=== PATIENT | female | born 1950 | race Caucasian/White ===

== ENCOUNTER 2018-01-05 12:24 | Day surgery (SDC) | payer MEDICARE, OTHER, SELFPAY ==
[2018-01-05 12:59] VITALS: BP 187/98; PULSE 82; RESP 16; TEMP 36.6; O2SAT 93
--- NOTE | 2018-01-05 13:08 | PM.PREOP ---
Pre-operative Note Interval Note Pre-op Check: History & Physical Reviewed by Physician
--- NOTE | 2018-01-05 13:09 | P.OP_ITS ---
Operative Date/Time/Diagnoses - Pre-op diagnosis: Cataract Left eye Post-op diagnosis: same Procedure & Clinicians Surgeon: Singh Casas Anesthesia Type: MAC +/- and Sedation Operative Notes Procedure in detail: Patient brought to the operating suite. Tetracaine drops placed in the left eye. Patient was prepped and draped in sterile manner. Wire lid speculum was placed in the eye. Betadine drops were placed on the eye. This was irrigated. Lidocaine jelly was placed on the eye. A paracentesis port was created with a side-port blade. 0.1 mL 1% preservative free lidocaine was injected into the anterior chamber. The anterior chamber was deepened with viscoelastic. 2.6 mm keratome was used to create a temporal clear corneal incision. Cystotome and Utrata forceps were used to create continuous tear capsulorrhexis. Balanced salt solution was used to hydro dissect the nucleus. The phacoemulsification handpiece was inserted and the nucleus was removed using the stop and chop technique. The irrigation aspiration handpiece was inserted and the remaining cortex was removed. Anterior chamber was deepened with viscoelastic. An Goldman [id number] intraocular lens with a power of 23.0 was injected into the capsular bag. Irrigation aspiration handpiece was inserted and the remaining viscoelastic was removed. Incision was hydrated with balanced salt solution and found to be leak free with pressure with Weck- Megan sponges. 0.1 mL Vigamox injected anterior chamber. 0.3 mL Kenalog 10 mg was injected subconjunctivally. Lid speculum was removed. The patient left the operating room in excellent condition. Complications: none Condition: stable Disposition: same day surgery
[2018-01-05] MEDS: PROPARACAINE 0.5% OPHTH SOL 2 DROPS EYE-OP (13:10)
[2018-01-05] MEDS: CATARACT EYE COMPOUND (10 DROPS/SYRINGE) 3 DROPS EYE-OP (13:13)
[2018-01-05] MEDS: CHONDROIDTIN/SOD HYALURONATE 1.05 ML SYRINGE INTRAOCULA (13:28)
[2018-01-05] MEDS: MOXIFLOXACIN OPHTH DROPS 3 ML BOTTLE 2 DROPS INJ (13:28)
[2018-01-05] MEDS: TRIAMCINOLONE 50 MG/5 ML VIAL INJ (13:29)
[2018-01-05] MEDS: BALANCED SALT IRRIG SOLN NO.2 500 ML, EPINEPHrine 1 MG IRR (13:30)
[2018-01-05] MEDS: LIDOCAINE JELLY 2% 5 ML 1 APPLIC TOP (13:31)
[2018-01-05] MEDS: TETRACAINE 0.5% OPHTH DROPS 15 ML 2 DROPS EYE-LEFT (13:32)
[2018-01-05] MEDS: PHENYLEPHRINE/LIDOCAINE 3ML VIAL (OR) EYE-OP (13:33)
[2018-01-05 13:44] VITALS: BP 168/97; PULSE 79; RESP 18; TEMP 36.1; O2SAT 95
[2018-01-05 14:00] VITALS: BP 129/68; PULSE 73; RESP 14; TEMP 36.1; O2SAT 95
== END 2018-01-05 14:16 | disposition home or self-care (01) ==
PROVIDERS: Visit Provider Ophthalmology
DX: H25.12 Age-related nuclear cataract, left eye (principal); I10 Essential (primary) hypertension
CPT/HCPCS: J0171; J2250; J3010; J3301

== ENCOUNTER 2018-02-22 15:01 | Emergency (ER) | payer MEDICARE, OTHER, SELFPAY ==
[2018-02-22 15:18] VITALS: BP 191/81; PULSE 85; RESP 20; TEMP 37.1; O2SAT 96; BMI 44.6
--- NOTE | 2018-02-22 15:24 | ED.GENADULT ---
HPI - General Adult General Chief complaint: Dizziness Stated complaint: dizziness and elevated BP Time Seen by Provider: 02/22/18 15:17 Source: patient Mode of arrival: ambulatory Limitations: no limitations History of Present Illness HPI narrative: 67-year-old female with a history of high blood pressure on lisinopril here for evaluation of headache and high blood pressure. Patient states that on Thursday she had a headache. She states that she has had a headache in the past but nothing this bad except for many years ago. It was a gradual onset. She states that she drank some Coke because this sometimes helps. However this time it did not. She states that yesterday the headache did improve somewhat. States that today the headache is a little worse than yesterday but not as bad as Thursday. Went to physical therapy today. States she was on the treadmill for 8 min and afterwards became lightheaded and had to have the physical speech therapy director help her off the treadmill. They took her blood pressure and the systolic was greater than 200. No medications were administered. She is brought to the emergency department for evaluation Related Data Home Medications Medication Instructions Recorded Confirmed acetaminophen [Tylenol Arthritis 1 tab PO PRN PRN 02/22/18 02/22/18 Pain] acetaminophen [Tylenol Extra 1 tab PO PRN PRN 02/22/18 02/22/18 Strength] aspirin 81 mg PO DAILY 02/22/18 02/22/18 lisinopril 30 mg PO DAILY 02/22/18 02/22/18 ranitidine HCl 1 tab PO BID 02/22/18 02/22/18 Allergies Allergy/AdvReac Type Severity Reaction Status Date / Time Sulfa (Sulfonamide Allergy Intermediate Verified 02/22/18 15:41 Antibiotics) adhesive tape AdvReac Intermediate Verified 02/22/18 15:41 adhesive AdvReac Verified 02/22/18 15:41 Review of Systems Constitutional Denies fever(s), Reports headache(s), Denies lethargy and Denies malaise ENT Ears, Nose, Mouth, and Throat: Denies vertigo, Denies dizziness and Reports headache(s) Cardiovascular Denies chest pain, Denies chest pain with activity, Denies syncope, Denies palpitations and Denies dyspnea Respiratory Denies cough and Denies dyspnea Gastrointestinal Gastrointestinal: Denies abdominal pain, Denies dyspepsia, Denies diarrhea, Denies nausea and Denies vomiting Genitourinary Denies dysuria Musculoskeletal Denies myalgias and Reports arthralgias (Chronic right knee pain) Integumentary/Breasts Reports lesions and Reports rash Neurologic Denies abnormal speech, Denies confusion, Denies vertigo, Denies dizziness, Denies syncope, Reports headache(s), Denies focal weakness, Denies seizure-like activity and Denies sensory deficit Psychiatric Denies confusion Endocrine Denies palpitations Hematologic/Lymphatic Denies easy bleeding and Denies easy bruising [facility] Medical History Hypertension (Acute) Social History household members: significant other Smoking Status: Former smoker Comment: Reviewed patient's past medical surgical social and family history Exam Initial Vital Signs Initial Vital Signs: Vital Signs Temperature 98.7 F 02/22/18 15:18 Pulse Rate 85 02/22/18 15:18 Respiratory Rate 20 02/22/18 15:18 Blood Pressure 191/81 H 02/22/18 15:18 Pulse Oximetry 96 02/22/18 15:18 Const General: cooperative, healthy appearing, comfortable, well developed, well groomed and No acute distress Orientation: alert, awake and oriented x3 HENMT Head: normal to inspection, normocephalic and atraumatic Eyes Pupils: PERRL EOM: EOM intact bilaterally Resp Effort & Inspection: normal respiratory effort Auscultation: clear to auscultation bilaterally Cardio Rate: regular rate Rhythm: regular rhythm Heart Sounds: no murmurs Pulses: radial pulses present GI Inspection: non-distended Palpation: soft, No firm and No tender Skin Lesions: no lesions Rashes: no rashes Neuro General: alert, awake and oriented x3 Cranial Nerves: CN's II-XI intact bilaterally Cognition: normal cognition Speech: speech normal Motor: muscle tone normal throughout Sensory Exam: no sensory deficits noted Extrem General: normal to inspection, capillary refill normal and normal exam except as noted Psych Appearance: grossly normal and well kempt Course Orders Ordered: ED Orders 02/22/18 15:24 EKG-12 Lead Stat 02/22/18 15:35 Basic Metabolic Panel Stat Complete Blood Count AUTO DIFF Stat 02/22/18 15:38 CT head/brain wo con Stat Vital Signs - 8 hr 02/22/18 15:18 02/22/18 15:40 02/22/18 16:42 Temperature 98.7 F Pulse Rate 85 70 75 Respiratory Rate 20 18 22 Blood Pressure 191/81 H Blood Pressure [Left Arm] 191/97 H 172/83 H Pulse Oximetry 96 94 97 Medical Decision Making MDM Narrative Medical decision making narrative: Patient with a normal neurologic exam here in the emergency department. Head CT was negative. Patient declined need for headache medicines here in the emergency department. Blood pressure decreasing while here. Will hold on acutely decreasing it here in the emergency department. Had a long discussion with the patient regarding her blood pressure in her symptoms. Will hold on further testing for now. Instructed her to continue to take her blood pressure at home. Informed her to contact her primary care doctor for follow-up. She was given return precautions. She expressed understanding and agreement with plan. Lab Data Result diagrams: 02/22/18 15:35 02/22/18 15:35 Lab Results 02/22/18 02/22/18 Range/Units 15:35 15:35 WBC 6.9 (4.5-11.0) X10^3/uL RBC 4.38 (4.0-5.2) X10^6/uL Hgb 12.4 (12.0-16.0) g/dL Hct 37.7 (36-46) % MCV 85.9 (80-100) fL MCH 28.2 (26-34) PG MCHC 32.9 (30-36) % RDW 14.5 (11.6-14.8) % Plt Count 268 (150-400) X10^3/uL Neut % (Auto) 69.5 (50-75) % Lymph % (Auto) 20.5 L (25-40) % [place] % (Auto) 7.4 (3-14) % Eos % (Auto) 2.1 (2-4) % Baso % (Auto) 0.5 (0-2) % Neut # (Auto) 4800 (8207-1506) /uL Sodium 143 (137-145) mmol/L Potassium 3.7 (3.4-5.1) mmol/L Chloride 109 H (98-107) mmol/L Carbon Dioxide 26 (22-32) mmol/L BUN 16 (7-17) mg/dL Creatinine 0.80 (0.52-1.04) mg/dL Estimated GFR > 60.0 (>60) mL/min BUN/Creatinine Ratio 20.0 (6-22) Glucose 96 (80-110) mg/dL Calcium 9.0 (8.4-10.2) mg/dL Imaging Data CT scan - head: Radiologist's impression: PROCEDURE: CT HEAD/BRAIN WO CON INDICATIONS: Headache with hypertension TECHNIQUE: Noncontrast 4.5 mm thick angled axial sections acquired from the foramen magnum to the vertex, with coronal and sagittal reformats. For radiation dose reduction, the following was used: automated exposure control, adjustment of mA and/or kV according to patient size. COMPARISON: None. FINDINGS: Image quality: Excellent. CSF spaces: Basal cisterns are patent. No extra-axial fluid collections. The ventricles are symmetric in size and shape. Brain: No intracranial bleeds or masses. There is cerebral volume loss for age, with resultant ventricular and sulcal prominence. There are periventricular and deep white matter chronic small vessel ischemic changes. There is intracranial internal carotid artery atherosclerosis. Skull and face: Calvarium and visualized facial bones appear intact, without suspicious lesions. Sinuses: Visualized sinuses and mastoids are clear. IMPRESSION: Normal intracranial study for age. Specifically, no findings of acute intracranial hemorrhage are seen. Note is made of age-appropriate brain parenchymal volume loss and chronic small vessel ischemic changes. Dictated by: Luis Canas M.D. on 02/22/2018 at 15:01 Approved by: Luis Canas M.D. on 02/22/2018 at 15:03 ECG Data Prior ECG tracings: not available for review Interpretation: Sinus rhythm Ventricular rate is 69 Normal axis Normal QRS Normal QTC No ST T wave changes Discharge Plan Departure Patient Disposition: Home, Self-Care Clinical Impression: Headache, Hypertension Instructions: High Blood Pressure (Hypertension) (Alternative Therapy), Essential Hypertension, DI for Headache Activity Restrictions/Additional Instructions: Continue to take your medication as directed. Call your primary care doctor for a follow-up. Return to the emergency department for any new or worsening symptoms Prescriptions: No Action ranitidine HCl 150 mg tablet 1 tab PO BID RF: 0 lisinopril 30 mg tablet 30 mg PO DAILY RF: 0 aspirin 81 mg Tablet,Delayed Release (Dr/Ec) 81 mg PO DAILY RF: 0 acetaminophen [Tylenol Extra Strength] 500 mg Tablet 1 tab PO PRN PRN (Reason: Pain, Mild) RF: 0 acetaminophen [Tylenol Arthritis Pain] 650 mg Tablet Extended Release 1 tab PO PRN PRN (Reason: Pain, Mild) RF: 0
--- NOTE | 2018-02-22 15:38 | DI.CT.S_ITS ---
PROCEDURE: CT HEAD/BRAIN WO CON INDICATIONS: Headache with hypertension TECHNIQUE: Noncontrast 4.5 mm thick angled axial sections acquired from the foramen magnum to the vertex, with coronal and sagittal reformats. For radiation dose reduction, the following was used: automated exposure control, adjustment of mA and/or kV according to patient size. COMPARISON: None. FINDINGS: Image quality: Excellent. CSF spaces: Basal cisterns are patent. No extra-axial fluid collections. The ventricles are symmetric in size and shape. Brain: No intracranial bleeds or masses. There is cerebral volume loss for age, with resultant ventricular and sulcal prominence. There are periventricular and deep white matter chronic small vessel ischemic changes. There is intracranial internal carotid artery atherosclerosis. Skull and face: Calvarium and visualized facial bones appear intact, without suspicious lesions. Sinuses: Visualized sinuses and mastoids are clear. IMPRESSION: Normal intracranial study for age. Specifically, no findings of acute intracranial hemorrhage are seen. Note is made of age-appropriate brain parenchymal volume loss and chronic small vessel ischemic changes. Dictated by: Luis Canas M.D. on 02/22/2018 at 15:01 Approved by: Luis Canas M.D. on 02/22/2018 at 15:03
[2018-02-22 15:40] VITALS: BP 191/97; PULSE 70; RESP 18; O2SAT 94
[2018-02-22 15:57] LABS: Add Manual Diff / Slide Review NO; Basophils Percent Auto 0.5 % (0-2); Eosinophils Percent Auto 2.1 % (2-4); Hematocrit 37.7 % (36-46); Hemoglobin 12.4 g/dL (12.0-16.0); Lymphocytes Percent Auto 20.5 % (25-40); Mean Corpuscular HGB Conc 32.9 % (30-36); Mean Corpuscular Hemoglobin 28.2 PG (26-34); Mean Corpuscular Volume 85.9 fL (80-100); Monocytes Percent Auto 7.4 % (3-14); Neutrophils Absolute Auto 4800 /uL (3000-5900); Neutrophils Percent Auto 69.5 % (50-75); Platelet Count 268 X10^3/uL (150-400); Red Blood Cell Count 4.38 X10^6/uL (4.0-5.2); Red Cell Distribution Width 14.5 % (11.6-14.8); White Blood Cell Count 6.9 X10^3/uL (4.5-11.0)
[2018-02-22 16:03] LABS: Blood Urea Nitrogen 16 mg/dL (7-17); Carbon Dioxide 26 mmol/L (22-32); Chloride 109 mmol/L (98-107); Estimated Glomerular Filt Rate > 60.0 mL/min (>60); Glucose 96 mg/dL (80-110); HEMOLYSIS < 15 (0-50); Potassium 3.7 mmol/L (3.4-5.1); Sodium 143 mmol/L (137-145)
[2018-02-22 16:42] VITALS: BP 172/83; PULSE 75; RESP 22; O2SAT 97
== END 2018-02-22 17:08 | disposition home or self-care (01) ==
PROVIDERS: Emergency Provider Emergency Medicine
DX: R51 Headache (principal); I10 Essential (primary) hypertension
CPT/HCPCS: 36591; 70450; 80048; 85025; 93005; 93010; 99282; 99285

== ENCOUNTER 2019-05-03 15:24 | Emergency (ER) | payer OTHER, SELFPAY ==
[2019-05-03 15:40] VITALS: BP 209/103; PULSE 99; RESP 19; TEMP 37; O2SAT 96; BMI 44.4
--- NOTE | 2019-05-03 15:57 | ED_ITS ---
HPI - Abdominal Pain General Chief Complaint: Abdominal Pain Stated Complaint: pain from back to abdomen Time Seen by Provider: 05/03/19 15:35 Source: patient Mode of arrival: Ambulatory Limitations: no limitations History of Present Illness HPI narrative: 68 female nonsmoker with history of hypertension presents at the request of the walk-in clinic for evaluation of severe upper and left-sided back pain with radiation to her abdomen. She states worse when she moves and improves with rest. She seems to have associated nausea and might get worse when she eats. She denies any history of the same. She denies any injury. She denies associated symptoms such as dizziness, weakness or lightheadedness. She has no fever or chills. She denies any chest pain, cough or shortness of breath. She denies any diarrhea, dysuria or frequency. Related Data Home Medications Medication Instructions Recorded Confirmed acetaminophen [Tylenol Arthritis 1,300 mg PO BID 02/22/18 05/03/19 Pain] aspirin 81 mg PO DAILY 02/22/18 05/03/19 Vitamin B-12 1 tab PO DAILY 05/03/19 05/03/19 Vitamin D3 1 cap PO DAILY 05/03/19 05/03/19 ibuprofen [Advil] 400 mg PO DAILY PRN 05/03/19 05/03/19 lisinopril 40 mg PO DAILY 05/03/19 05/03/19 Allergies Allergy/AdvReac Type Severity Reaction Status Date / Time Sulfa (Sulfonamide Allergy Intermediate Verified 05/03/19 15:45 Antibiotics) iodine Allergy Verified 05/03/19 15:45 adhesive tape AdvReac Intermediate Verified 05/03/19 15:45 adhesive AdvReac Verified 05/03/19 15:45 Review of Systems Constitutional Constitutional: Denies chills, Denies fatigue, Denies fever(s), Denies frequent falls, Denies lethargy and Denies weakness Eyes Eyes: Denies change in vision, Denies eye discharge, Denies irritation and Denies loss of vision ENT Ears, Nose, Mouth, and Throat: Denies change in voice, Denies dizziness, Denies neck pain, Denies sore throat and Denies throat swelling Cardiovascular Cardiovascular: Denies chest pain, Denies irregular heart rhythm, Denies lightheadedness, Denies palpitations, Denies dyspnea, Denies dyspnea on exertion and Denies orthopnea Respiratory Respiratory: Denies cough, Denies dyspnea, Denies dyspnea on exertion and Denies wheezing Gastrointestinal Gastrointestinal: Reports abdominal pain, Denies change in bowel habits, Denies diarrhea, Reports nausea and Denies vomiting Genitourinary Genitourinary: Denies hematuria, Denies flank pain, Denies urinary incontinence and Denies urinary urgency Musculoskeletal Musculoskeletal: Denies back pain, Denies muscle weakness, Denies neck pain, Denies numbness and Denies tingling Integumentary/Breasts Skin/Breast: Denies pruritus, Denies erythema, Denies rash and Denies wounds Neurologic Neurologic: Denies behavioral changes, Denies confusion, Denies dizziness, Denies frequent falls, Denies loss of vision, Denies numbness, Denies tingling and Denies weakness Psychiatric Psychiatric: Denies anxiety, Denies behavioral changes, Denies confusion, Denies depression, Denies homicidal ideation and Denies suicidal ideation Endocrine Endocrine: Denies fatigue, Denies flushing and Denies palpitations Hematologic/Lymphatic Hematologic/Lymphatic: Denies easy bruising Allergic/Immunologic Allergic/Immunologic: Denies urticaria, Denies throat swelling and Denies wheezing [facility] Medical History Hypertension (Acute) Social History household members: significant other Smoking Status: Former smoker Social History household members: significant other Smoking Status: Former smoker Exam Narrative Exam Narrative: GENERAL: [68] year old patient appears stated age. Well-nourishe d, well-developed patient, in mild distress. HEAD: Atraumatic. Normocephalic. EYES: Pupils equal round and reactive. Extraocular motions intact. No scleral icterus. No injection or drainage. ENT: Nose without bleeding, purulent drainage. Throat without erythema, tonsillar hypertrophy or exudate. Airway patent. NECK: Trachea midline. Non tender CARDIOVASCULAR: Regular rate and rhythm without murmurs, gallops, or rubs. RESPIRATORY: Clear to auscultation. Breath sounds equal bilaterally. No wheezes, rales, or rhonchi. GASTROINTESTINAL: Abdomen soft, mild epigastric pain, nondistended. EXTREMITIES: No edema or joint tenderness. BACK: Left flank tender to palpate NEURO: AOx3. SKIN: No rash or erythema of visible areas Initial Vital Signs Initial Vital Signs: Vital Signs Temperature 98.6 F 05/03/19 15:40 Pulse Rate 99 H 05/03/19 15:40 Respiratory Rate 19 05/03/19 15:40 Blood Pressure 209/103 H 05/03/19 15:40 Pulse Oximetry 96 05/03/19 15:40 Course Orders Ordered: ED Orders 05/03/19 15:40 Urine Microscopic Stat 05/03/19 15:55 US abdomen complete Stat 05/03/19 16:04 EKG-12 Lead Stat 05/03/19 16:43 CT abdomen pelvis w con Stat 05/03/19 17:15 Complete Blood Count AUTO DIFF Stat Comprehensive Metabolic Panel Stat Lipase Stat Partial Thromboplastin Time Stat Prothrombin Time INR Stat 05/03/19 19:55 Creatinine & eGFR Stat Discontinued Medications Diphenhydramine HCl (Benadryl) 25 mg IV NOW ONE Stop: 05/03/19 16:49 Last Admin: 05/03/19 17:59 Dose: 25 mg Documented by: BERTRAND Famotidine (Pepcid) 20 mg in 50 mls @ 200 mls/hr IV NOW ONE Stop: 05/03/19 17:03 Last Infusion: 05/03/19 18:17 Dose: 0 mls/hr Documented by: Admin: 05/03/19 17:59 Dose: 200 mls/hr Documented by: BERTRAND Sodium Chloride (Normal Saline 0.9%) 1,000 mls @ 1,000 mls/hr IV BOLUS ONE Stop: 05/03/19 19:34 Last Infusion: 05/03/19 19:51 Dose: 0 mls/hr Documented by: Admin: 05/03/19 18:53 Dose: 1,000 mls/hr Documented by: CONNIE Methylprednisolone (Solu-Medrol 125 Mg Vial) 125 mg IV NOW ONE Stop: 05/03/19 16:49 Last Admin: 05/03/19 17:59 Dose: 125 mg Documented by: BERTRAND Vital Signs Vital signs: Vital Signs - 8 hr 05/03/19 15:40 05/03/19 18:58 Temperature 98.6 F Pulse Rate 99 H 82 Respiratory Rate 19 20 Blood Pressure 209/103 H Blood Pressure [Right Wrist] 179/93 H Pulse Oximetry 96 96 MDM - Abdominal Pain Lab Data Result diagrams: 05/03/19 17:15 05/03/19 19:55 Labs: Lab Results 05/03/19 05/03/19 05/03/19 Range/Units 15:40 17:15 17:15 WBC 8.7 (4.5-11.0) X10^3/uL RBC 4.42 (4.0-5.2) X10^6/uL Hgb 13.2 (12.0-16.0) g/dL Hct 39.4 (36-46) % MCV 89.2 (80-100) fL MCH 29.9 (26-34) PG MCHC 33.5 (30-36) % RDW 14.0 (11.6-14.8) % Plt Count 225 (150-400) X10^3/uL Neut % (Auto) 76.4 H (50-75) % Lymph % (Auto) 14.7 L (25-40) % [place] % (Auto) 7.6 (3-14) % Eos % (Auto) 0.9 L (2-4) % Baso % (Auto) 0.4 (0-2) % Neut # (Auto) 6700 (3651-5124) /uL Lymph # (Auto) 1300 (7744-6528) /uL [place] # (Auto) 700 (0-900) /uL Eos # (Auto) 100 (0-450) /uL Baso # (Auto) 0 (0-100) /uL PT 11.5 (10.1-12.7) SECONDS INR 1.0 (0.9-1.3) APTT 29 (26.4-36.2) SECONDS Sodium (137-145) mmol/L Potassium (3.4-5.1) mmol/L Chloride (98-107) mmol/L Carbon Dioxide (22-32) mmol/L BUN (7-17) mg/dL Creatinine (0.52-1.04) mg/dL Estimated GFR (>60) mL/min BUN/Creatinine Ratio (6-22) Glucose (80-110) mg/dL Calcium (8.4-10.2) mg/dL Total Bilirubin (0.2-1.3) mg/dL AST (14-36) IU/L ALT (9-52) IU/L Alkaline Phosphatase (38-126) U/L Total Protein (6.3-8.2) g/dL Albumin (3.5-5.0) g/dL Globulin (1.7-4.1) g/dL Albumin/Globulin Ratio (1.0-2.8) Lipase (23-300) U/L Urine RBC 10-30/hpf H (0-5/HPF) Urine WBC 1-5/hpf (0-5/HPF) Ur Squamous Epith Cells 10-30 /hpf H (0-5/HPF) Ur Transition Epith Cell 1-5/hpf (0-5/HPF) Urine Bacteria Few (2-10) H (None) Ur Culture Indicated? Cult not indicated Micro UA Comment Not a clean catch 05/03/19 05/03/19 Range/Units 17:15 19:55 WBC (4.5-11.0) X10^3/uL RBC (4.0-5.2) X10^6/uL Hgb (12.0-16.0) g/dL Hct (36-46) % MCV (80-100) fL MCH (26-34) PG MCHC (30-36) % RDW (11.6-14.8) % Plt Count (150-400) X10^3/uL Neut % (Auto) (50-75) % Lymph % (Auto) (25-40) % [place] % (Auto) (3-14) % Eos % (Auto) (2-4) % Baso % (Auto) (0-2) % Neut # (Auto) (4433-9866) /uL Lymph # (Auto) (4061-5294) /uL [place] # (Auto) (0-900) /uL Eos # (Auto) (0-450) /uL Baso # (Auto) (0-100) /uL PT (10.1-12.7) SECONDS INR (0.9-1.3) APTT (26.4-36.2) SECONDS Sodium 145 (137-145) mmol/L Potassium 3.7 (3.4-5.1) mmol/L Chloride 109 H (98-107) mmol/L Carbon Dioxide 25 (22-32) mmol/L BUN 25 H (7-17) mg/dL Creatinine 1.60 H 1.40 H (0.52-1.04) mg/dL Estimated GFR 32.0 L 37.3 L (>60) mL/min BUN/Creatinine Ratio 15.6 (6-22) Glucose 94 (80-110) mg/dL Calcium 9.9 (8.4-10.2) mg/dL Total Bilirubin 0.5 (0.2-1.3) mg/dL AST 21 (14-36) IU/L ALT 18 (9-52) IU/L Alkaline Phosphatase 68 (38-126) U/L Total Protein 7.2 (6.3-8.2) g/dL Albumin 4.1 (3.5-5.0) g/dL Globulin 3.1 (1.7-4.1) g/dL Albumin/Globulin Ratio 1.3 (1.0-2.8) Lipase 69 (23-300) U/L Urine RBC (0-5/HPF) Urine WBC (0-5/HPF) Ur Squamous Epith Cells (0-5/HPF) Ur Transition Epith Cell (0-5/HPF) Urine Bacteria (None) Ur Culture Indicated? Micro UA Comment Point of care testing: Urine Dip Bedside Urine Glucose Negative Bedside Urine Bilirubin + 1 Bedside Urine Ketone +/- 5 Urine Specific [place] 1.020 Bedside Urine Occult Blood +++ Bedside Urine pH 5.5 Bedside Urine Protein +/- 15 Bedside Urine Urobilinogen +/- 1mg Bedside Urine Nitrite - Negative Bedside Urine Leukocytes +/- 15 Esterase Imaging Data US - abdomen: Radiologist's impression: [place] [address] Ultrasound Report Signed Patient: Laura Trotter [facility]#: [id number] : 9Acct:[id number] Age/Sex: 68 / FDate of Service: 05/03/19 Loc: ED Accession Number: [id number] Procedure: US abdomen complete Ordering Provider: Junior Gonzalez D.O. PROCEDURE: US ABDOMEN COMPLETE INDICATIONS: SEVERE EPIGASTRIC AND LEFT FLANK PAIN TECHNIQUE: Real-time scanning was performed of the abdominal and retroperitoneal organs, with image documentation. COMPARISON: None. FINDINGS: Liver: Liver is normal in size and demonstrates diffusely increased echotexture. Left hepatic lobe is not visualized. Gallbladder: Surgically absent. Biliary ducts: Intrahepatic bile ducts are non-dilated. Extrahepatic bile duct is not visualized. Pancreas: Not visualized. Spleen: Spleen is normal in size and homogeneous in echotexture. Kidneys: Kidneys are normal in size and echotexture. Right kidney measures 10.4 cm long; left kidney measures 10.3 cm long. No hydronephrosis or nephrolithiasis. No solid masses. Aorta: Visualized aorta is normal in caliber at less than 3 cm. Iliacs: Proximal common iliac arteries are normal in caliber at less than 2.5 cm. IVC: Intrahepatic inferior vena cava is patent. Miscellaneous: No free abdominal fluid. IMPRESSION: 1. Suboptimal examination due to the patient's body habitus. 2. Diffusely increased hepatic echotexture. This finding is most likely second mary carmen to hepatic fatty infiltration although other hepatocellular disease may have a similar appearance. Recommend clinical correlation. 3. Cholecystectomy. 4. Common bile duct, pancreas, and left hepatic lobe are not visualized. Dictated by: Catrachito Landeros M.D. on 05/03/2019 at 17:06 Approved by: Catrachito Landeros M.D. on 05/03/2019 at 17:12 [place] [address] CT Scan Report Signed Patient: Laura Trotter [facility]#: [id number] : 9Acct:[id number] Age/Sex: 68 / FDate of Service: 05/03/19 Loc: ED Accession Number: [id number] Procedure: CT abdomen pelvis w con Ordering Provider: Junior Gonzalez D.O. PROCEDURE: CT ABDOMEN PELVIS W CON INDICATIONS: severe upper abdominal pain TECHNIQUE: After the administration of intravenous contrast, 5 mm thick sections acquired from the diaphragm to the symphysis. 5 mm coronal and sagittal reformats were acquired. For radiation dose reduction, the following was used: automated exposure control, adjustment of mA and/or kV according to patient size. COMPARISON: None. FINDINGS: Image quality: Excellent. ABDOMEN: Lung bases: Lung bases are clear. Heart size is normal. There is a moderate sized hiatal hernia. Solid organs: Evaluation of the liver demonstrates no focal hepatic lesions. The gallbladder is surgically absent. Biliary system is non-dilated. Pancreas enhances normally. No peripancreatic fat stranding or fluid collections. No pancreatic duct dilatation. The spleen is normal in size. No adrenal nodules. Kidneys demons trate no hydronephrosis. There are bilateral parapelvic renal cysts. Peritoneum and bowel: Bowel loops demonstrate normal wall thickness and caliber. No pericecal inflammatory changes to suggest appendicitis. There is colonic diverticulosis without diverticulitis. No free fluid or air. Nodes and vessels: No retroperitoneal or mesenteric adenopathy by size criteria. Aorta and inferior vena cava are normal in size. Miscellaneous: No ventral hernias. PELVIS: Genitourinary: Bladder wall thickness is normal. The uterus is surgically absent. Miscellaneous: No inguinal hernias or adenopathy. Bones: No suspicious bony lesions. No vertebral body compression fractures. IMPRESSION: 1. No definite acute intra-abdominal abnormality. 2. Moderate-sized hiatal hernia. 3. Colonic diverticulosis without acute diverticulitis. Dictated by: Ruiz Sofia M.D. on 05/03/2019 at 18:58 Approved by: Ruiz Sofia M.D. on 05/03/2019 at 19:08 Discharge Plan Departure Patient Disposition: Home Clinical Impression: Acute flank pain Instructions: DI for Abdominal Pain-Adult Activity Restrictions/Additional Instructions: *You have been diagnosed with [acute abdominal and flank pain] *What to do: *Take medications as directed, consider anti-inflammatories and topical lidocaine patches *Follow up with your primary care provider in 2-3 days, call for an appointment. Let them know you were seen in the Emergency Department and that we ask that you be seen in follow up *Return to ER if you should have any new, worsening or concerning symptoms Prescriptions: No Action aspirin 81 mg Tablet,Delayed Release (Dr/Ec) 81 mg PO DAILY RF: 0 acetaminophen [Tylenol Arthritis Pain] 650 mg Tablet Extended Release 1,300 mg PO BID RF: 0 lisinopril 40 mg tablet 40 mg PO DAILY RF: 0 ibuprofen [Advil] 200 mg Tablet 400 mg PO DAILY PRN (Reason: pain) RF: 0 Vitamin B-12 1 tab PO DAILY RF: 0 Vitamin D3 1 cap PO DAILY RF: 0
[2019-05-03 15:58] LABS: Bacteria Urine Few (2-10); Culture Indicated Urine Cult Not Indicated; RBC Urine 10-30/HPF (0-5/HPF); Squamous Epithelial Cell Urine 10-30 /HPF (0-5/HPF); Transitional Epi Cells Urine 1-5/HPF (0-5/HPF); Urine Comments NOT A CLEAN CATCH; WBC Urine 1-5/HPF (0-5/HPF)
--- NOTE | 2019-05-03 16:43 | DI.CT.S_ITS ---
PROCEDURE: CT ABDOMEN PELVIS W CON INDICATIONS: severe upper abdominal pain TECHNIQUE: After the administration of intravenous contrast, 5 mm thick sections acquired from the diaphragm to the symphysis. 5 mm coronal and sagittal reformats were acquired. For radiation dose reduction, the following was used: automated exposure control, adjustment of mA and/or kV according to patient size. COMPARISON: None. FINDINGS: Image quality: Excellent. ABDOMEN: Lung bases: Lung bases are clear. Heart size is normal. There is a moderate sized hiatal hernia. Solid organs: Evaluation of the liver demonstrates no focal hepatic lesions. The gallbladder is surgically absent. Biliary system is non-dilated. Pancreas enhances normally. No peripancreatic fat stranding or fluid collections. No pancreatic duct dilatation. The spleen is normal in size. No adrenal nodules. Kidneys demonstrate no hydronephrosis. There are bilateral parapelvic renal cysts. Peritoneum and bowel: Bowel loops demonstrate normal wall thickness and caliber. No pericecal inflammatory changes to suggest appendicitis. There is colonic diverticulosis without diverticulitis. No free fluid or air. Nodes and vessels: No retroperitoneal or mesenteric adenopathy by size criteria. Aorta and inferior vena cava are normal in size. Miscellaneous: No ventral hernias. PELVIS: Genitourinary: Bladder wall thickness is normal. The uterus is surgically absent. Miscellaneous: No inguinal hernias or adenopathy. Bones: No suspicious bony lesions. No vertebral body compression fractures. IMPRESSION: 1. No definite acute intra-abdominal abnormality. 2. Moderate-sized hiatal hernia. 3. Colonic diverticulosis without acute diverticulitis. Dictated by: Ruiz Sofia M.D. on 05/03/2019 at 18:58 Approved by: Ruiz Sofia M.D. on 05/03/2019 at 19:08
[2019-05-03 17:23] LABS: Add Manual Diff / Slide Review NO; Basophils Absolute Auto 0 /uL (0-100); Basophils Percent Auto 0.4 % (0-2); Eosinophils Absolute Auto 100 /uL (0-450); Eosinophils Percent Auto 0.9 % (2-4); Hematocrit 39.4 % (36-46); Hemoglobin 13.2 g/dL (12.0-16.0); Lymphocytes Absolute Auto 1300 /uL (1100-4500); Lymphocytes Percent Auto 14.7 % (25-40); Mean Corpuscular HGB Conc 33.5 % (30-36); Mean Corpuscular Hemoglobin 29.9 PG (26-34); Mean Corpuscular Volume 89.2 fL (80-100); Monocytes Absolute Auto 700 /uL (0-900); Monocytes Percent Auto 7.6 % (3-14); Neutrophils Absolute Auto 6700 /uL (1500-7000); Neutrophils Percent Auto 76.4 % (50-75); Platelet Count 225 X10^3/uL (150-400); Red Blood Cell Count 4.42 X10^6/uL (4.0-5.2); White Blood Cell Count 8.7 X10^3/uL (4.5-11.0)
[2019-05-03 17:30] LABS: Prothrombin Time 11.5 SECONDS (10.1-12.7)
[2019-05-03 17:32] LABS: PTT Partial Thromboplastin Tim 29 SECONDS (26.4-36.2)
[2019-05-03 17:33] LABS: Alanine Aminotransferase 18 IU/L (9-52); Albumin 4.1 g/dL (3.5-5.0); Albumin Globulin Ratio 1.3 (1.0-2.8); Alkaline Phosphatase 68 U/L (38-126); Aspartate Aminotransferase 21 IU/L (14-36); BUN Creatinine Ratio 15.6 (6-22); Bilirubin Total 0.5 mg/dL (0.2-1.3); Blood Urea Nitrogen 25 mg/dL (7-17); Calcium 9.9 mg/dL (8.4-10.2); Carbon Dioxide 25 mmol/L (22-32); Chloride 109 mmol/L (98-107); Globulin 3.1 g/dL (1.7-4.1); Glucose 94 mg/dL (80-110); HEMOLYSIS < 15 (0-50); Lipase 69 U/L (23-300); Potassium 3.7 mmol/L (3.4-5.1); Sodium 145 mmol/L (137-145); Total Protein 7.2 g/dL (6.3-8.2)
[2019-05-03] MEDS: diphenhydrAMINE 50 MG/ML VIAL 25 MG IV (17:59)
[2019-05-03] MEDS: FAMOTIDINE 20 MG/50 ML PIGGYBACK 200 MG IV (17:59)
[2019-05-03] MEDS: methylPREDNISolone 125 MG/2 ML VIAL IV (17:59)
[2019-05-03] MEDS: SODIUM CHLORIDE 0.9% 1,000 ML 1000 ML IV (18:53)
[2019-05-03 18:58] VITALS: BP 179/93; PULSE 82; RESP 20; O2SAT 96
[2019-05-03 20:10] LABS: Estimated Glomerular Filt Rate 37.3 mL/min (>60)
[2019-05-03 20:47] VITALS: BP 193/83; PULSE 73; RESP 22; O2SAT 96
== END 2019-05-03 20:53 | disposition home or self-care (01) ==
PROVIDERS: Emergency Provider Emergency Medicine
DX: R10.9 Unspecified abdominal pain (principal); R10.13 Epigastric pain; R11.0 Nausea; I10 Essential (primary) hypertension
CPT/HCPCS: 36415; 74177; 76700; 80053; 81003; 81015; 82565; 83690; 85025; 85610; 85730; 93005; 96361; 96365; 96375; 99283; 99285; J1200; J2930; Q9967

== ENCOUNTER 2019-05-05 21:18 | Emergency (ER) | payer OTHER, SELFPAY ==
[2019-05-05 21:30] VITALS: BP 182/94; PULSE 113; RESP 19; TEMP 36.9; O2SAT 98; BMI 44.4
[2019-05-05 22:37] LABS: Add Manual Diff / Slide Review NO; Basophils Absolute Auto 0 /uL (0-100); Basophils Percent Auto 0.3 % (0-2); Eosinophils Absolute Auto 0 /uL (0-450); Hematocrit 38.7 % (36-46); Lymphocytes Absolute Auto 800 /uL (1100-4500); Lymphocytes Percent Auto 6.4 % (25-40); Mean Corpuscular HGB Conc 33.7 % (30-36); Mean Corpuscular Hemoglobin 29.6 PG (26-34); Mean Corpuscular Volume 87.8 fL (80-100); Monocytes Absolute Auto 1000 /uL (0-900); Monocytes Percent Auto 8.2 % (3-14); Neutrophils Absolute Auto 10400 /uL (1500-7000); Neutrophils Percent Auto 85.1 % (50-75); Platelet Count 235 X10^3/uL (150-400); Red Blood Cell Count 4.41 X10^6/uL (4.0-5.2); White Blood Cell Count 12.2 X10^3/uL (4.5-11.0)
[2019-05-05 22:47] LABS: BUN Creatinine Ratio 15.8 (6-22); Blood Urea Nitrogen 19 mg/dL (7-17); Carbon Dioxide 22 mmol/L (22-32); Chloride 109 mmol/L (98-107); Estimated Glomerular Filt Rate 44.5 mL/min (>60); Glucose 121 mg/dL (80-110); HEMOLYSIS 43 (0-50); Lipase 44 U/L (23-300); Potassium 3.5 mmol/L (3.4-5.1); Sodium 139 mmol/L (137-145)
--- NOTE | 2019-05-05 22:57 | ED_ITS ---
HPI - Abdominal Pain General Chief Complaint: Abdominal Pain Stated Complaint: Abdominal pain/constipation Time Seen by Provider: 05/05/19 22:56 Source: patient and EMS Mode of arrival: EMS Limitations: no limitations History of Present Illness HPI narrative: This is a 68-year-old female comes to the emergency department with complaint of abdominal/flank pain. Patient states that this started several days ago. She was seen here for the same. She had imaging and CT scan which did not find any clear cause of her pain. She states sort of improved but has returned. Patient states no fevers or chills. patient states that she has had some nausea but no vomiting. She states she has felt like she needed to davila ve a bowel movement but has not had 1. She has been passing gas. She denies any chest pain or shortness of breath, no call cough. No dysuria urgency or frequency. patient tried some Advil at home which was somewhat helpful. Patient states movement does sort of seem to exacerbate it, laying still help somewhat. Seems to be in the back and radiating around towards the front. No rashes or skin changes. Related Data Home Medications Medication Instructions Recorded Confirmed acetaminophen [Tylenol Arthritis 1,300 mg PO BID 02/22/18 05/03/19 Pain] aspirin 81 mg PO DAILY 02/22/18 05/03/19 Vitamin B-12 1 tab PO DAILY 05/03/19 05/03/19 Vitamin D3 1 cap PO DAILY 05/03/19 05/03/19 ibuprofen [Advil] 400 mg PO DAILY PRN 05/03/19 05/03/19 lisinopril 40 mg PO DAILY 05/03/19 05/03/19 Previous Rx's Medication Instructions Recorded hydrocodone-acetaminophen [Tsaile] 1 tab PO Q6H PRN #10 tab 05/06/19 polyethylene glycol 3350 [Miralax] 17 gram PO DAILY PRN #30 each 05/06/19 Allergies Allergy/AdvReac Type Severity Reaction Status Date / Time Sulfa (Sulfonamide Allergy Intermediate Verified 05/03/19 15:45 Antibiotics) iodine Allergy Verified 05/03/19 15:45 adhesive tape AdvReac Intermediate Verified 05/03/19 15:45 adhesive AdvReac Verified 05/03/19 15:45 Review of Systems Review of Systems ROS Unobtainable: All systems reviewed & are unremarkable except as noted in HPI and below Constitutional Constitutional: Denies chills, Denies fever(s) and Denies lethargy Cardiovascular Cardiovascular: Denies chest pain, Denies syncope, Denies lightheadedness, Denies palpitations, Denies dyspnea and Denies dyspnea on exertion Respiratory Respiratory: Denies chest congestion, Denies cough, Denies dyspnea, Denies dyspnea on exertion and Denies wheezing Gastrointestinal Gastrointestinal: Reports abdominal pain, Denies melena, Denies hematochezia, Denies change in bowel habits, Reports constipation, Denies diarrhea, Reports nausea and Denies vomiting Genitourinary Genitourinary: Denies hematuria, Denies urinary frequency, Denies dysuria, Denies flank pain, Denies urinary incontinence and Denies urinary urgency Musculoskeletal Musculoskeletal: Reports back pain, Denies limited range of motion, Denies nu mbness, Denies radiating pain into limb and Denies tingling Integumentary/Breasts Skin/Breast: Denies rash Neurologic Neurologic: Denies syncope, Denies numbness and Denies tingling Endocrine Endocrine: Denies palpitations Allergic/Immunologic Allergic/Immunologic: Denies wheezing Exam Narrative Exam Narrative: GENERAL: Alert and oriented x three, obese female in mild distress. HEENT: Head normocephalic, atraumatic, EOMI, pupils reactive, face symmetric, moist mucous membranes NECK: Supple, full range of motion CARDIOVASCULAR: Regular rate and rhythm without murmurs, rubs or gallops. RESPIRATORY: Breath sounds equal bilaterally, no wheezes rales or rhonchi. ABDOMEN: Soft, patient has moderate generalized tenderness. Normoactive bowel sounds all 4 quadrants. No guarding or rebound, rigidity, no mass, no hernia. BACK: No cervical, thoracic or lumbar vertebral point tenderness. patient does have tenderness on the left lower back and over the left SI region. Patient has full range of motion. Patient's gait is normal.. Rectal exam is normal sphincter tone, no stool at rectum, no mass. Muscle strength is 5/5 in lower extremities. Dorsalis pedis and tibialis pulses are 2+ and lower extremities. Sensation is intact in the lower extremities. : No CVA tenderness EXTREMITIES: Normal range of motion, no clubbing or edema. Neurovascularly intact NEUROLOGICAL: Cranial nerves II through XII grossly intact. Moving all extremities SKIN: Warm, dry, no petechiae, no rashes or lesions. Initial Vital Signs Initial Vital Signs: Vital Signs Temperature 98.5 F 05/05/19 21:30 Pulse Rate 113 H 05/05/19 21:30 Respiratory Rate 19 05/05/19 21:30 Blood Pressure 182/94 H 05/05/19 21:30 Pulse Oximetry 98 05/05/19 21:30 Course Orders Ordered: Discontinued Medications Hydrocodone Bitart/Acetaminophen (Vicodin Prepack) 1 bottle MISC SEEINSTR ONE Stop: 05/06/19 00:35 Last Admin: 05/06/19 00:39 Dose: 1 bottle Documented by: ALEXANDRA Ketorolac Tromethamine (Toradol) 15 mg IV NOW ONE Stop: 05/05/19 23:37 Last Admin: 05/05/19 23:45 Dose: 15 mg Documented by: ALEXANDRA Ondansetron HCl (Zofran) 4 mg IV NOW ONE Stop: 05/05/19 23:37 Last Admin: 05/05/19 23:45 Dose: 4 mg Documented by: ALEXANDRA Vital Signs Vital signs: Vital Signs - 8 hr 05/06/19 00:30 Pulse Rate 92 H Respiratory Rate 17 Blood Pressure [Left Arm] 160/92 H Pulse Oximetry 95 MDM - Abdominal Pain Lab Data Attestation: I reviewed the patient's lab results. Result diagrams: 05/05/19 22:25 05/05/19 22:25 Labs: Lab Results 05/05/19 05/05/19 05/05/19 Range/Units 22:25 22:25 22:25 WBC 12.2 H (4.5-11.0) X10^3/uL RBC 4.41 (4.0-5.2) X10^6/uL Hgb 13.0 (12.0-16.0) g/dL Hct 38.7 (36-46) % MCV 87.8 (80-100) fL MCH 29.6 (26-34) PG MCHC 33.7 (30-36) % RDW 14.0 (11.6-14.8) % Plt Count 235 (150-400) X10^3/uL Neut % (Auto) 85.1 H (50-75) % Lymph % (Auto) 6.4 L (25-40) % [place] % (Auto) 8.2 (3-14) % Eos % (Auto) 0.0 L (2-4) % Baso % (Auto) 0.3 (0-2) % Neut # (Auto) 30520 H (8788-1718) /uL Lymph # (Auto) 800 L (7007-5764) /uL [place] # (Auto) 1000 H (0-900) /uL Eos # (Auto) 0 (0-450) /uL Baso # (Auto) 0 (0-100) /uL Sodium 139 (137-145) mmol/L Potassium 3.5 (3.4-5.1) mmol/L Chloride 109 H (98-107) mmol/L Carbon Dioxide 22 (22-32) mmol/L BUN 19 H (7-17) mg/dL Creatinine 1.20 H (0.52-1.04) mg/dL Estimated GFR 44.5 L (>60) mL/min BUN/Creatinine Ratio 15.8 (6-22) Glucose 121 H (80-110) mg/dL Calcium 9.0 (8.4-10.2) mg/dL Total Bilirubin 0.7 (0.2-1.3) mg/dL Conjugated Bilirubin 0.0 (0.0-0.3) md/dL Unconjugated Bilirubin 0.5 (0.0-1.1) mg/dL AST 27 (14-36) IU/L ALT 10 (9-52) IU/L Alkaline Phosphatase 58 (38-126) U/L Total Protein 7.1 (6.3-8.2) g/dL Albumin 3.8 (3.5-5.0) g/dL Globulin 3.3 (1.7-4.1) g/dL Albumin/Globulin Ratio 1.2 (1.0-2.8) Lipase 44 (23-300) U/L Imaging Data CT scan - abdomen: Radiologist's impression: No acute abnormality. Moderate size hiatal hernia. Colonic diverticulosis without diverticulitis was CT from 05/03/2019 [facility] Narrative Medical decision making narrative: Patient comes with recurrence of abdominal pain improved with Toradol. Patient feels much better. Her exam she does have some tenderness kind of in the left flank but also even the left lower back we discussed that her pain could be secondary to back pain, could related to her abdomen. With the nausea possibly constipation which is her suspicion but she could also have an early shingles. We discussed following up with primary care and reasons to return emergently Discharge Plan Departure Patient Disposition: Home Clinical Impression: Flank pain Discharge Date/Time: 05/06/19 00:56 Instructions: DI for Flank Pain Activity Restrictions/Additional Instructions: Follow-up with your physician in the next 2-3 days for recheck call for an appointment. You may take an ibuprofen occasionally for breakthrough pain but I would not take regularly. May take Tsaile 1 tablet every 6 hours as needed for pain. Take MiraLax once daily for constipation. Return for fevers greater than 100.4 F, persistent vomiting, black or bloody stools, new symptoms, passing out, new weakness, numbness, loss of sensation or other new or concerning symptoms. Prescriptions: New hydrocodone-acetaminophen [Tsaile] 5-325 mg tablet 1 tab PO Q6H PRN (Reason: pain) Qty: 10 RF: 0 polyethylene glycol 3350 [Miralax] 17 gram powder in packet 17 gram PO DAILY PRN (Reason: constip) Qty: 30 RF: 0 No Action aspirin 81 mg Tablet,Delayed Release (Dr/Ec) 81 mg PO DAILY RF: 0 acetaminophen [Tylenol Arthritis Pain] 650 mg Tablet Extended Release 1,300 mg PO BID RF: 0 lisinopril 40 mg tablet 40 mg PO DAILY RF: 0 ibuprofen [Advil] 200 mg Tablet 400 mg PO DAILY PRN (Reason: pain) RF: 0 Vitamin B-12 1 tab PO DAILY RF: 0 Vitamin D3 1 cap PO DAILY RF: 0
[2019-05-05 23:03] LABS: Alanine Aminotransferase 10 IU/L (9-52); Albumin 3.8 g/dL (3.5-5.0); Albumin Globulin Ratio 1.2 (1.0-2.8); Alkaline Phosphatase 58 U/L (38-126); Aspartate Aminotransferase 27 IU/L (14-36); Bilirubin Total 0.7 mg/dL (0.2-1.3); Bilirubin Unconjugated 0.5 mg/dL (0.0-1.1); Globulin 3.3 g/dL (1.7-4.1); HEMOLYSIS 46 (0-50); Total Protein 7.1 g/dL (6.3-8.2)
[2019-05-05] MEDS: KETOROLAC 60 MG/2 ML VIAL 15 MG IV (23:45)
[2019-05-05] MEDS: ONDANSETRON 4 MG/2 ML INJ IV (23:45)
[2019-05-06 00:30] VITALS: BP 160/92; PULSE 92; RESP 17; O2SAT 95
[2019-05-06] MEDS: HYDROCODONE/ACET 5/325 PREPACK 1 BOTTLE MISC (00:39)
== END 2019-05-06 00:56 | disposition home or self-care (01) ==
PROVIDERS: Emergency Provider Emergency Medicine
DX: R10.9 Unspecified abdominal pain (principal)
CPT/HCPCS: 36415; 80048; 80076; 83690; 85025; 96374; 96375; 99282; 99284; J1885; J2405

== ENCOUNTER 2019-06-21 17:05 | Emergency (ER) | payer OTHER, SELFPAY ==
[2019-06-21 17:13] VITALS: BP 176/86; PULSE 73; RESP 13; TEMP 36.8; O2SAT 98
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
[2019-06-21] MEDS: TET,DIPH,PERTUSS(ACELL),VAC/PF 0.5 ML SYRINGE IM (17:21)
--- NOTE | 2019-06-21 18:01 | PC.NURSE ---
smooth border/ dressing placed. extra dressings given and will follow up
--- NOTE | 2019-06-21 18:08 | PC.NURSE ---
dc vs 180/86 63 14 99%
== END 2019-06-21 18:07 | disposition home or self-care (01) ==
PROVIDERS: Emergency Provider Internal Medicine
DX: T21.22XA Burn of second degree of abdominal wall, initial encounter (principal); Z23 Encounter for immunization
CPT/HCPCS: 90471; 99282; 90715

== ENCOUNTER → 2020-03-12 21:29 | Outpatient (ROUT) | payer OTHER, SELFPAY ==
[2020-03-12 22:01] LABS: Add Manual Diff / Slide Review NO; Basophils Absolute Auto 0 /uL (0-100); Basophils Percent Auto 0.3 % (0-2); Eosinophils Absolute Auto 200 /uL (0-450); Eosinophils Percent Auto 2.7 % (2-4); Hematocrit 40.9 % (36-46); Hemoglobin 13.7 g/dL (12.0-16.0); Lymphocytes Absolute Auto 1500 /uL (1100-4500); Lymphocytes Percent Auto 22.8 % (25-40); Mean Corpuscular HGB Conc 33.6 % (30-36); Mean Corpuscular Hemoglobin 30.4 PG (26-34); Mean Corpuscular Volume 90.5 fL (80-100); Monocytes Absolute Auto 500 /uL (0-900); Monocytes Percent Auto 6.9 % (3-14); Neutrophils Absolute Auto 4400 /uL (1500-7000); Neutrophils Percent Auto 67.3 % (50-75); Platelet Count 270 X10^3/uL (150-400); Red Blood Cell Count 4.52 X10^6/uL (4.0-5.2); White Blood Cell Count 6.5 X10^3/uL (4.5-11.0)
[2020-03-12 22:20] LABS: Alanine Aminotransferase 18 IU/L (<35); Albumin Globulin Ratio 1.3 (1.0-2.8); Alkaline Phosphatase 68 U/L (38-126); Aspartate Aminotransferase 22 IU/L (14-36); BUN Creatinine Ratio 25.6 (6-22); Bilirubin Total 0.5 mg/dL (0.2-1.3); Blood Urea Nitrogen 21 mg/dL (7-17); Calcium 9.3 mg/dL (8.4-10.2); Carbon Dioxide 24 mmol/L (22-32); Chloride 108 mmol/L (98-107); Cholesterol 159 mg/dL (140-199); Estimated Glomerular Filt Rate > 60.0 mL/min (>60); Glucose 94 mg/dL (80-110); HDL Cholesterol 60 mg/dL (40-60); HEMOLYSIS < 15 (0-50); LDL Cholesterol Calculated 79 mg/dL (<100); Potassium 4.2 mmol/L (3.4-5.1); Sodium 141 mmol/L (137-145); Triglycerides 98 mg/dL (35-150)
[2020-03-12 23:08] LABS: Hemoglobin A1C% w Est Avg Glu 5.3 % (4.0-6.0)
== END ==
PROVIDERS: Visit Provider Physician Assistant
DX: J30.9 Allergic rhinitis, unspecified (principal); I10 Essential (primary) hypertension; E66.01 Morbid (severe) obesity due to excess calories; E78.2 Mixed hyperlipidemia
CPT/HCPCS: 80053; 80061; 83036; 85025

== ENCOUNTER 2021-12-31 13:17 | Emergency (ER) | payer MEDICARE, SELFPAY ==
[2021-12-31] VITALS (13 sets, daily range): BP systolic 160–222; BP diastolic 61–104; PULSE 57–89; RESP 16–30; TEMP 37; O2SAT 91–98
--- NOTE | 2021-12-31 13:28 | DI.RAD.S_ITS ---
PROCEDURE: XR CHEST 1V INDICATIONS: chest pain TECHNIQUE: One view of the chest was acquired. COMPARISON: None. FINDINGS: Surgical changes and devices: None. Lungs and pleura: Lungs are clear. No pleural effusions or pneumothorax. Mediastinum: Mediastinal contours appear normal. Heart size is normal. Bones and chest wall: No suspicious bony lesions. Overlying soft tissues appear unremarkable. IMPRESSION: No acute cardiopulmonary findings Approved by: David Sherwood M.D. on 12/31/2021 at 14:44
--- NOTE | 2021-12-31 13:35 | PC.NURSE ---
Pt also concerned she has a bladder infection. Urine sent for analysis.
[2021-12-31 13:40] LABS: Appearance Urine UA CLEAR; Bilirubin Urine UA NEGATIVE (NEGATIVE); Color Urine UA YELLOW; Glucose Urine UA NEGATIVE (Negative); Ketones Urine UA NEGATIVE (NEGATIVE); Leukocyte Esterase Urine UA TRACE (NEGATIVE); Nitrite Urine UA NEGATIVE (Negative); Occult Blood Urine UA NEGATIVE (Negative); Protein Urine UA TRACE (Negative); Urobilinogen Urine UA 0.2 E.U./dL (0.2)
[2021-12-31 13:42] LABS: pH Urine UA 5.5 (4.5-8.0)
[2021-12-31 13:49] LABS: Bacteria Urine None Seen; Culture Indicated Urine Cult Not Indicated; RBC Urine None Seen (0-5/HPF); Squamous Epithelial Cell Urine 5-10 /HPF (0-5/HPF); WBC Urine 1-5/HPF (0-5/HPF)
[2021-12-31 13:54] LABS: Add Manual Diff / Slide Review NO; Basophils Absolute Auto 0 /uL (0-100); Basophils Percent Auto 0.4 % (0-2); Eosinophils Absolute Auto 200 /uL (0-450); Eosinophils Percent Auto 2.9 % (2-4); Hematocrit 36.9 % (36-46); Hemoglobin 12.2 g/dL (12.0-16.0); Lymphocytes Absolute Auto 1200 /uL (1100-4500); Lymphocytes Percent Auto 16.9 % (25-40); Mean Corpuscular Hemoglobin 28.8 PG (26-34); Mean Corpuscular Volume 87.1 fL (80-100); Monocytes Absolute Auto 600 /uL (0-900); Monocytes Percent Auto 7.8 % (3-14); Neutrophils Absolute Auto 5100 /uL (1500-7000); Platelet Count 262 X10^3/uL (150-400); Red Blood Cell Count 4.24 X10^6/uL (4.0-5.2); Red Cell Distribution Width 13.6 % (11.6-14.8); White Blood Cell Count 7.1 X10^3/uL (4.5-11.0)
--- NOTE | 2021-12-31 13:57 | PC.NURSE ---
Pt endorses chest pain has been intermittent for 2 weeks, not just two hours. Pt states it began when she was lifting a heavy chair. Pt states when the pain comes, it is a sharp spasm-like pain that lasts only a few seconds then goes away.
[2021-12-31 14:06] LABS: Alanine Aminotransferase 12 IU/L (<35); Albumin 3.9 g/dL (3.5-5.0); Albumin Globulin Ratio 1.2 (1.0-2.8); Alkaline Phosphatase 66 U/L (38-126); Aspartate Aminotransferase 21 IU/L (14-36); BUN Creatinine Ratio 21.7 (6-22); Bilirubin Total 0.3 mg/dL (0.2-1.3); Blood Urea Nitrogen 18 mg/dL (7-17); Calcium 8.9 mg/dL (8.4-10.2); Carbon Dioxide 23 mmol/L (22-32); Chloride 109 mmol/L (98-107); Creatine Kinase 30 U/L (30-135); Estimated Glomerular Filt Rate > 60 mL/min (>60); Globulin 3.2 g/dL (1.7-4.1); Glucose 89 mg/dL (80-110); HEMOLYSIS < 15 (0-50); Lipase 82 U/L (23-300); Magnesium 1.9 mg/dL (1.6-2.3); Potassium 3.8 mmol/L (3.4-5.1); Sodium 142 mmol/L (137-145); Total Protein 7.1 g/dL (6.3-8.2)
[2021-12-31 14:17] LABS: Troponin I < 0.012 ng/mL (0.01-0.034)
[2021-12-31 16:09] LABS: Troponin I < 0.012 ng/mL (0.01-0.034)
--- NOTE | 2021-12-31 16:18 | ED_ITS ---
HPI - Chest Pain General Chief Complaint: Chest Pain Stated Complaint: Chest pain x 24 hours Time Seen by Provider: 12/31/21 16:17 Source: patient and EMS Mode of arrival: EMS Limitations: no limitations History of Present Illness HPI narrative: This is a 71-year-old female with history of hypertension who presents with left chest spasm x2 hours, lightheadedness, feeling like she might pass out. Patient states spasm been intermittent, nothing seems to make it worse exertion does not increasing coming nothing seems to alleviate. She states she describe's shortness of breath that she takes deeper breath but does not struggle with them. She denies fever or chills, she has had a recent sinus congestion, and rhinorrhea, no nausea or vomiting, no issues with diarrhea constipation, she denies vomiting but had nausea prior. No swelling in extremities. Patient has history of hypertension no diabetes, dyslipidemia no cardiac disease or prior stents. She has had orthopedic repair for her right leg remotely. Allergic to sulfa and penicillin. Family history includes mom who had CABG, no known pulmonary or embolic disorder. No tobacco, alcohol or illicit. Related Data Home Medications Medication Instructions Recorded Confirmed acetaminophen 650 mg 1,300 mg PO BID 02/22/18 05/03/19 tablet,extended release (Tylenol Arthritis Pain) aspirin 81 mg tablet,delayed 81 mg PO DAILY 02/22/18 05/03/19 release Vitamin B-12 1 tab PO DAILY 05/03/19 05/03/19 Vitamin D3 1 cap PO DAILY 05/03/19 05/03/19 ibuprofen 200 mg tablet (Advil) 400 mg PO DAILY PRN pain 05/03/19 05/03/19 lisinopril 40 mg tablet 40 mg PO DAILY 05/03/19 06/21/19 ranitidine HCl 150 mg tablet 150 mg PO BID 06/21/19 06/21/19 Previous Rx's Medication Instructions Recorded hydrocodone 5 mg-acetaminophen 325 1 tab PO Q6H PRN pain #10 tabs 05/06/19 mg tablet ([place]) polyethylene glycol 3350 17 gram 17 gram PO DAILY PRN constip #30 ea 05/06/19 oral powder packet (Miralax) Allergies Allergy/AdvReac Type Severity Reaction Status Date / Time Sulfa (Sulfonamide Allergy Intermediate Verified 05/03/19 15:45 Antibiotics) iodine Allergy Verified 05/03/19 15:45 adhesive tape AdvReac Intermediate Verified 05/03/19 15:45 adhesive AdvReac Verified 05/03/19 15:45 Review of Systems Review of Systems ROS Unobtainable: All systems reviewed & are unremarkable except as noted in HPI and below Patient History Medical History (Updated 12/31/21 @ 18:48 by Sabino Pedraza RN) Hypertension Surgical History (Updated 06/21/19 @ 17:43 by Elizabeth Oliveros PA-C) Status post cholecystectomy Status post open reduction and internal fixation (ORIF) of fracture Social History household members: significant other Smoking Status: Former smoker Smoking Status: Former smoker alcohol intake frequency: holidays/special occasions only Substance Use Type: does not use Exam Narrative Exam Narrative: GENERAL: Alert and oriented x three, obese female in mild distress. HEENT: Head normocephalic, atraumatic, EOMI, pupils reactive, face symmetric, moist mucous membranes NECK: Supple, full range of motion CARDIOVASCULAR: Regular rate and rhythm without murmurs, rubs or gallops. No JVD. No swelling bilateral lower extremities. RESPIRATORY: Breath sounds equal bilaterally, no wheezes rales or rhonchi. No tachypnea accessory muscle use. ABDOMEN: Soft, nontender. Normoactive bowel sounds all 4 quadrants. No guarding or rebound, rigidity, no mass : No CVA tenderness EXTREMITIES: Normal range of motion, no clubbing or edema. Neurovascularly intact NEUROLOGICAL: Cranial nerves II through XII grossly intact. Moving all extremities SKIN: Warm, dry, no petechiae, no rashes or lesions. Initial Vital Signs Initial Vital Signs: Vital Signs Temperature 98.6 F 12/31/21 13:17 Pulse Rate 88 12/31/21 13:17 Respiratory Rate 22 12/31/21 13:17 Blood Pressure 222/104 H 12/31/21 13:17 Pulse Oximetry 97 12/31/21 13:17 Oxygen Delivery Method 12/31/21 13:17 Course Orders Ordered: ED Orders 12/31/21 13:28 XR chest 1V Stat EKG-12 Lead Stat 12/31/21 13:30 Urinalysis and Microscopic Stat 12/31/21 13:40 Complete Blood Count AUTO DIFF Stat Comprehensive Metabolic Panel Stat Lipase Stat Magnesium Stat Troponin & CK Cardiac Panel Stat 12/31/21 15:20 EKG-12 Lead Stat 12/31/21 15:25 Troponin I Stat 12/31/21 17:30 COVID19 -Nasal RAPID/Pre-Proc Stat Vital Signs Vital signs: Vital Signs - 8 hr 12/31/21 13:17 12/31/21 13:52 12/31/21 14:00 Temperature 98.6 F Pulse Rate 88 67 62 Respiratory Rate 22 28 H 21 Blood Pressure 222/104 H Pulse Oximetry 97 96 97 12/31/21 14:30 12/31/21 14:39 12/31/21 15:00 Temperature Pulse Rate 57 L 60 59 L Respiratory Rate 16 23 20 Blood Pressure 160/61 H Pulse Oximetry 96 98 95 12/31/21 15:30 12/31/21 16:04 12/31/21 16:30 Temperature Pulse Rate 60 70 62 Respiratory Rate 30 H 18 Blood Pressure Pulse Oximetry 96 91 95 12/31/21 17:00 12/31/21 17:30 12/31/21 18:00 Temperature Pulse Rate 63 60 63 Respiratory Rate 17 17 19 Blood Pressure Pulse Oximetry 96 97 96 12/31/21 18:48 Temperature Pulse Rate 89 Respiratory Rate 18 Blood Pressure 167/80 H Pulse Oximetry 98 MDM - Chest Pain Lab Data Result diagrams: 12/31/21 13:40 12/31/21 13:40 Labs: Lab Results 12/31/21 12/31/21 12/31/21 Range/Units 13:30 13:40 13:40 WBC 7.1 (4.5-11.0) X10^3/uL RBC 4.24 (4.0-5.2) X10^6/uL Hgb 12.2 (12.0-16.0) g/dL Hct 36.9 (36-46) % MCV 87.1 (80-100) fL MCH 28.8 (26-34) PG MCHC 33.0 (30-36) % RDW 13.6 (11.6-14.8) % Plt Count 262 (150-400) X10^3/uL Neut % (Auto) 72.0 (50-75) % Lymph % (Auto) 16.9 L (25-40) % [place] % (Auto) 7.8 (3-14) % Eos % (Auto) 2.9 (2-4) % Baso % (Auto) 0.4 (0-2) % Neut # (Auto) 5100 (5312-1170) /uL Lymph # (Auto) 1200 (8755-0936) /uL [place] # (Auto) 600 (0-900) /uL Eos # (Auto) 200 (0-450) /uL Baso # (Auto) 0 (0-100) /uL Sodium 142 (137-145) mmol/L Potassium 3.8 (3.4-5.1) mmol/L Chloride 109 H (98-107) mmol/L Carbon Dioxide 23 (22-32) mmol/L BUN 18 H (7-17) mg/dL Creatinine 0.83 (0.52-1.04) mg/dL Estimated GFR > 60 (>60) mL/min BUN/Creatinine Ratio 21.7 (6-22) Glucose 89 (80-110) mg/dL Calcium 8.9 (8.4-10.2) mg/dL Magnesium 1.9 (1.6-2.3) mg/dL Total Bilirubin 0.3 (0.2-1.3) mg/dL AST 21 (14-36) IU/L ALT 12 (<35) IU/L Alkaline Phosphatase 66 (38-126) U/L Total Creatine Kinase 30 (30-135) U/L CK-MB (CK-2) TNP CK-MB (CK-2) Rel Index TNP Troponin I < 0.012 (0.01-0.034) ng/mL Total Protein 7.1 (6.3-8.2) g/dL Albumin 3.9 (3.5-5.0) g/dL Globulin 3.2 (1.7-4.1) g/dL Albumin/Globulin Ratio 1.2 (1.0-2.8) Lipase 82 (23-300) U/L Urine Color Yellow Urine Appearance Clear Urine pH 5.5 (4.5-8.0) Ur Specific [place] 1.020 (1.000-1.035) Urine Protein Trace H (Negative) Urine Glucose (UA) Negative (Negative) g/dL Urine Ketones Negative (NEGATIVE) Urine Occult Blood Negative (Negative) Urine Nitrate Negative (Negative) Urine Bilirubin Negative (NEGATIVE) Urine Urobilinogen 0.2 (0.2) E.U./dL Ur Leukocyte Esterase Trace H (NEGATIVE) Urine RBC None seen (0-5/HPF) Urine WBC 1-5/hpf (0-5/HPF) Ur Squamous Epith Cells 5-10 /hpf H (0-5/HPF) Urine Bacteria None seen (None) Ur Culture Indicated? Cult not indicated SARS-CoV-2 (PCR) (Negative) 12/31/21 12/31/21 Range/Units 15:25 17:30 WBC (4.5-11.0) X10^3/uL RBC (4.0-5.2) X10^6/uL Hgb (12.0-16.0) g/dL Hct (36-46) % MCV (80-100) fL MCH (26-34) PG MCHC (30-36) % RDW (11.6-14.8) % Plt Count (150-400) X10^3/uL Neut % (Auto) (50-75) % Lymph % (Auto) (25-40) % [place] % (Auto) (3-14) % Eos % (Auto) (2-4) % Baso % (Auto) (0-2) % Neut # (Auto) (6937-0291) /uL Lymph # (Auto) (3562-5955) /uL [place] # (Auto) (0-900) /uL Eos # (Auto) (0-450) /uL Baso # (Auto) (0-100) /uL Sodium (137-145) mmol/L Potassium (3.4-5.1) mmol/L Chloride (98-107) mmol/L Carbon Dioxide (22-32) mmol/L BUN (7-17) mg/dL Creatinine (0.52-1.04) mg/dL Estimated GFR (>60) mL/min BUN/Creatinine Ratio (6-22) Glucose (80-110) mg/dL Calcium (8.4-10.2) mg/dL Magnesium (1.6-2.3) mg/dL Total Bilirubin (0.2-1.3) mg/dL AST (14-36) IU/L ALT (<35) IU/L Alkaline Phosphatase (38-126) U/L Total Creatine Kinase (30-135) U/L CK-MB (CK-2) CK-MB (CK-2) Rel Index Troponin I < 0.012 (0.01-0.034) ng/mL Total Protein (6.3-8.2) g/dL Albumin (3.5-5.0) g/dL Globulin (1.7-4.1) g/dL Albumin/Globulin Ratio (1.0-2.8) Lipase (23-300) U/L Urine Color Urine Appearance Urine pH (4.5-8.0) Ur Specific [place] (1.000-1.035) Urine Protein (Negative) Urine Glucose (UA) (Negative) g/dL Urine Ketones (NEGATIVE) Urine Occult Blood (Negative) Urine Nitrate (Negative) Urine Bilirubin (NEGATIVE) Urine Urobilinogen (0.2) E.U./dL Ur Leukocyte Esterase (NEGATIVE) Urine RBC (0-5/HPF) Urine WBC (0-5/HPF) Ur Squamous Epith Cells (0-5/HPF) Urine Bacteria (None) Ur Culture Indicated? SARS-CoV-2 (PCR) Negative (Negative) Imaging Data Chest x-ray: Radiologist's Impression: [place] [address] XRay Report Signed Patient: Laura Trotter MR#: [id number] : 1950 Acct:[id number] Age/Sex: 71 / F Date of Service: 12/31/21 Loc: ED Accession Number: [id number] ?? Procedure: XR chest 1V Ordering Provider: Larisa Beltrán D.O. PROCEDURE:? XR CHEST 1V ? INDICATIONS:? chest pain ? TECHNIQUE:? One view of the chest was acquired.? ? COMPARISON:? None. ? FINDINGS:? ? Surgical changes and devices:? None.? ? Lungs and pleura:? Lungs are clear.? No pleural effusions or pneumothorax.? ? Mediastinum:? Mediastinal contours appear normal.? Heart size is normal.? ? Bones and chest wall:? No suspicious bony lesions.? Overlying soft tissues appear unremarkable.? ? IMPRESSION:? No acute cardiopulmonary findings ? ? ? Approved by: David Sherwood M.D. on 12/31/2021 at 14:44? ECG Data Attestation: I personally reviewed and interpreted this ECG as follows: Prior ECG tracings: available for review Interpretation: EKG 1. NSR rate of 62, DC 172, QRS of 82, QTC of 381. No acute ST change appr eciated. No acute pulido since 05/03/19. EKG 2. NSR 64, rate of 57, DC 220, QRS of 98, QTc 490. No acute ST changes appreciated. Appears similar to prior from today. MDM Narrative Medical decision making narrative: This is a 71-year-old female with history of hypertension, and age increase her risk for cardiac cause but she has also had recent sinus infection symptoms started in the past 24 hours. Patient's chest x-ray is negative, she was initially hypertensive but improved without intervention here in the department. EKG, troponins x2 show no acute changes her labs do not show major changes. COVID swab was negative the patient was encouraged to repeat if her symptoms are persisting. We did discussed potential cardiac causes as well and need for return or stress testing if patient has persistent symptoms. Discharge Plan Departure Patient Disposition: Home Clinical Impression: Atypical chest pain, Hypertension Instructions: DI for Atypical Chest Pain Activity Restrictions/Additional Instructions: Follow up with your physician for recheck. I would recommend a repeat COVID swab in 24 hours if you are having persistent symptoms. You can continue home medications as prescribed. Please return for new or worsening symptoms, passing out, worsening chest pain, shortness of breath, new swelling in your extremities or other new or concerning symptoms. Prescriptions: No Action hydrocodone-acetaminophen [[place]] 5-325 mg tablet 1 tab PO Q6H PRN (Reason: pain) Qty: 10 0RF polyethylene glycol 3350 [Miralax] 17 gram powder in packet 17 gram PO DAILY PRN (Reason: constip) Qty: 30 0RF ranitidine HCl 150 mg tablet 150 mg PO BID Label Comments: TK 1 T PO BID FOR STOMACH OR ACID SUPPRESSION aspirin 81 mg Tablet,Delayed Release (Dr/Ec) 81 mg PO DAILY acetaminophen [Tylenol Arthritis Pain] 650 mg Tablet Extended Release 1,300 mg PO BID lisinopril 40 mg tablet 40 mg PO DAILY ibuprofen [Advil] 200 mg Tablet 400 mg PO DAILY PRN (Reason: pain) Label Comments: midday if needed. Vitamin B-12 1 tab PO DAILY Vitamin D3 1 cap PO DAILY Referrals: Jahaira Plummer MD [Primary Care Provider] - Visit Report Forms: Patient Portal/API
[2021-12-31 18:22] LABS: COVID19 -Nasal RAPID Negative (Negative)
== END 2021-12-31 18:48 | disposition home or self-care (01) ==
PROVIDERS: Emergency Provider Emergency Medicine; PCP Internal Medicine
DX: R07.89 Other chest pain (principal); I10 Essential (primary) hypertension; Z20.822 Contact with and (suspected) exposure to COVID-19
CPT/HCPCS: 36415; 71045; 80053; 81001; 82550; 83690; 83735; 84484; 85025; 87635; 93005; 93010; 99283; 99284; C9803